=== PATIENT | male | born 1960 | race Caucasian/White ===

== ENCOUNTER 2017-01-17 09:32 | Day surgery (SDC) | payer BC ==
[2017-01-17] MEDS ORDERED: LIDOCAINE 2% MDV (20MG/ML) 20ML VIAL IV ONE (14:00)
[2017-01-17] MEDS ORDERED: PROPOFOL 10 MG/ML VIAL IV ONE (14:00)
--- NOTE | 2017-01-19 12:40 | Operative Note ---
DATE OF SURGERY: 01/17/2017 OPERATION: COLONOSCOPY to the cecum with cold snare polypectomy x1. INDICATION: Colorectal cancer screening. ANESTHESIA: Intravenous sedation was administered by the department of anesthesiology and included Diprivan titrated to effect. PROCEDURE: Following informed consent from this alert individual including a discussion of the risks and benefits of the procedure and an opportunity for the patient to ask questions, the patient was in the left lateral decubitus position. A digital rectal examination was performed. No abnormalities were noted. Following this, the Olympus [id number] video colonoscope was inserted into the rectum without resistance. The rectal mucosa had a normal appearance with normal folds and distensibility. The colonoscope was advanced up through the colon to the level of the cecum without much difficulty. Throughout the bowel the mucosa appeared normal, the folds were normal, and the bowel was fairly well distensible. The cecum was defined by noting the appendiceal orifice and ileocecal valve. From the base of the cecum, the colonoscope was then withdrawn after retroflexion was accomplished. No abnormalities were noted in the ascending colon. In the proximal transverse colon, there was a 4 mm polyp noted along a fold. It was removed with cold snare polypectomy and suctioned through the endoscope into a collection trap. Two applications of the snare were made to remove the entire polyp. One piece of the polyp was suctioned and noted in a collection trap. The colonoscope was then further withdrawn. Again sigmoid diverticulosis was noted. No other polyps were seen. Retroflexion in the rectum revealed [id number] size internal hemorrhoids. The endoscope was straightened and withdrawn. The patient tolerated the procedure well and was returned to the recovery area in stable condition. IMPRESSION: 1. A 4 mm transverse colon polyp removed with cold snare polypectomy. 2. Sigmoid diverticulosis. 3. [id number] size internal hemorrhoids. RECOMMENDATIONS: The patient was advised he should receive a copy of his pathology report at home in the next 2-3 weeks. If not, he was asked to call my office to review the results of testing today.Further recommendations may be forthcoming pending those results. Followup will also be with Dr. Jefferson Reyez. As always, thank you for allowing me to participate in the care of your patient. CC: Dr. Aissatou GARCIA
== END 2017-01-17 12:10 | disposition home or self-care (01) ==
LOC: HOP 09:32
PROVIDERS: ATTEND Internal Medicine Gastroenterology
DX: Z12.11 Encounter for screening for malignant neoplasm of colon (principal); D12.3 Benign neoplasm of transverse colon; K57.30 Diverticulosis of large intestine without perforation or abscess without bleeding; K64.8 Other hemorrhoids; I10 Essential (primary) hypertension